=== PATIENT | female | born 1990 | race Caucasian/White ===

== ENCOUNTER 2016-09-09 22:40 | Emergency (ER) | payer OTHER ==
[~2016-09-09] VITALS: Ht 175.2 cm; Wt 90.7 kg
[~2016-09-09 22:40] MED LIST: AMOXICILLIN500 MG PO; ATARAX25 MG PO; BACTRIM DS 8001 TAB PO; BIRTH CONTROL1 EAC1 PO; CIPRO250 MG PO; CIPROFLOXACIN500 MG PO; KEFLEX500 MG PO; LEVOFLOXACIN500 MG PO; LIDEX0.05% T; MACROBID100 M1 PO; MOTRIN600 MG PO; NAPROSYN500 MG PO; NKHM; NORCO 325 MG-51 TAB PO; PARAFON FORTE500 MG PO; PERCOCET 325 MG1 TA2 PO; PERCOCET 325 MG1 TA5 PO; PREDNICOT20 MG PO; PRENATAL1 TA1 PO; PRENATAL1 TA2 PO; PYRIDIUM200 M1 PO; SEPTRA DS 800 M1 TAB PO; ULTRAM50 MG PO; ZITHROMAX250 MG PO; ZOFRAN4 MG PO
[2016-09-09 23:09] LABS: BASO % 0.5 % (0.0-1.0); EOS # 0.2 10*3/uL (0.0-0.4); EOS % 3.7 % (1.0-4.0); HEMATOCRIT 37.9 % (37.0-47.0); HEMOGLOBIN 12.9 g/dl (12.0-16.0); LYMPH # 1.2 10*3/uL (1.3-4.4); LYMPH % 20.2 % (27.0-41.0); MEAN CELL VOLUME 87.3 fl (81.0-99.0); MEAN CORPUSCULAR HGB 29.7 pg (27.0-31.0); MEAN PLATELET VOLUME 9.8 fl (9.6-12.3); MONO # 0.6 10*3/uL (0.1-1.0); NEUT # 3.7 10*3/uL (2.3-7.9); NEUT % 65.2 % (47.0-73.0); PLATELET COUNT AUTOMATED 230 10*3/uL (130-400); RED BLOOD COUNT 4.34 10*6/uL (4.10-5.10); RED CELL DISTRI WIDTH 12.9 % (0-14.5); WHITE BLOOD COUNT 5.7 10*3/uL (4.8-10.8)
[2016-09-09 23:25] LABS: ALBUMIN 3.9 gm/dl (3.1-4.5); ALKALINE PHOSPHATASE 90 U/L (45-117); BILIRUBIN, TOTAL 0.4 mg/dl (0.2-1.0); BUN 10 mg/dl (7-24); CARBON DIOXIDE 28 mmol/L (21-32); CHLORIDE 105 mmol/L (98-107); EST GLOM FILT AFRICAN AMERICAN > 60 ml/min; GLUCOSE 89 mg/dL (65-99); POTASSIUM 3.7 mmol/L (3.5-5.1); SGOT/AST 23 IU/L (3-35); SGPT/ALT 18 U/L (12-78); SODIUM 143 mmol/L (136-145); TOTAL PROTEIN 7.6 gm/dL (6.4-8.2)
[2016-09-09 23:26] LABS: TROPONIN I < 0.015 ng/ml (<0.045)
[2016-09-09 23:50] LABS: PROTHROMBIN TIME 10.6 SECONDS (9.0-12.4)
[2016-09-10] MEDS ORDERED: CYCLOBENZAPRINE10 MG PO (01:34)
[2016-09-10] MEDS ORDERED: IBUPROFEN600 MG PO (01:34)
== END 2016-09-10 01:41 | disposition home or self-care (01) ==
LOC: ED 22:40
PROVIDERS: Family Medicine
DX: S29.012A Strain of muscle and tendon of back wall of thorax, initial encounter (principal); F17.200 Nicotine dependence, unspecified, uncomplicated; X58.XXXA Exposure to other specified factors, initial encounter; Y93.9 Activity, unspecified; Y92.9 Unspecified place or not applicable; Y99.9 Unspecified external cause status

== ENCOUNTER 2016-10-16 18:57 | Emergency (ER) | payer OTHER ==
[~2016-10-16] VITALS: Ht 175.2 cm
[~2016-10-16 18:57] MED LIST changes: +CYCLOBENZAPRINE10 MG PO; +IBUPROFEN600 MG PO
== END 2016-10-16 19:30 | disposition home or self-care (01) ==
LOC: ED 18:57
DX: S61.216A Laceration without foreign body of right little finger without damage to nail, initial encounter (principal); R03.0 Elevated blood-pressure reading, without diagnosis of hypertension; Z29.12 Encounter for prophylactic antivenin; W25.XXXA Contact with sharp glass, initial encounter; Y93.G1 Activity, food preparation and clean up; Y92.89 Other specified places as the place of occurrence of the external cause; Y99.8 Other external cause status

== ENCOUNTER 2017-06-28 14:07 | Emergency (ER) | payer OTHER ==
[~2017-06-28] VITALS: Ht 175.2 cm; Wt 95.3 kg
[2017-06-28] MEDS ORDERED: ZYRTEC10 MG PO (16:07)
[2017-06-28] MEDS ORDERED: AMOXICILLIN500 M2 PO (16:07)
== END 2017-06-28 16:10 | disposition home or self-care (01) ==
LOC: ED 14:07
DX: J01.90 Acute sinusitis, unspecified (principal); F17.200 Nicotine dependence, unspecified, uncomplicated; Z98.51 Tubal ligation status; Z98.890 Other specified postprocedural states; Z79.899 Other long term (current) drug therapy

== ENCOUNTER 2017-08-02 14:02 | Emergency (ER) | payer OTHER ==
[~2017-08-02] VITALS: Ht 177.8 cm; Wt 90.7 kg
[~2017-08-02 14:02] MED LIST changes: +AMOXICILLIN500 M2 PO; +ZYRTEC10 MG PO
[2017-08-02 14:37] LABS: BILIRUBIN NEGATIVE (NEGATIVE); BLOOD NEGATIVE (NEGATIVE); CLARITY SL CLOUDY (CLEAR); COLOR YELLOW (YELLOW); GLUCOSE NEGATIVE (NEGATIVE); KETONE NEGATIVE (NEGATIVE); LEUKO ESTERASE NEGATIVE (NEGATIVE); NITRITE NEGATIVE (NEGATIVE); SPECIFIC GRAVITY 1.025 (1.005-1.030)
[2017-08-02 14:47] LABS: BACTERIA TRACE; EPITHELIAL CELLS 21-30; MUCOUS 3+
[2017-08-02] MEDS ORDERED: ZOFRAN ODT4 MG SL (15:08)
== END 2017-08-02 15:45 | disposition home or self-care (01) ==
LOC: ED 14:02
PROVIDERS: Physician Assistant
DX: N91.2 Amenorrhea, unspecified (principal); R11.2 Nausea with vomiting, unspecified; R51 Headache; F17.200 Nicotine dependence, unspecified, uncomplicated; Z98.51 Tubal ligation status

== ENCOUNTER → 2018-05-01 | Day surgery (SDC) | payer OTHER ==
[2018-04-24 11:41] VITALS: BP 128/71
[~2018-05-01] VITALS: Ht 175.2 cm; Wt 93.0 kg
[~2018-05-01] MED LIST changes: +LOESTRIN FE 1-1 EACH PO; +Motrin,Rufen800 MG PO; +PREDNISONE20 M1 PO; +PROAIR HFA8.5 GM INH; +ZOFRAN ODT4 MG SL
[2018-05-01 09:16] VITALS: BP 83/53
[2018-05-01 09:31] VITALS: BP 103/48
[2018-05-01 09:46] VITALS: BP 118/71
[2018-05-01 10:01] VITALS: BP 110/72
[2018-05-01 10:16] VITALS: BP 109/64
[2018-05-01 10:32] VITALS: BP 106/72
== END | disposition home or self-care (01) ==
LOC: SDC 04-24 11:00
DX: N87.1 Moderate cervical dysplasia (principal); F17.210 Nicotine dependence, cigarettes, uncomplicated; Z98.51 Tubal ligation status; Z87.440 Personal history of urinary (tract) infections; Z98.890 Other specified postprocedural states

== ENCOUNTER 2018-07-07 03:34 | Emergency (ER) | payer OTHER ==
[~2018-07-07] VITALS: Wt 88.5 kg
[2018-07-07] MEDS ORDERED: CYCLOBENZAPRINE10 MG PO (04:00)
[2018-07-07] MEDS ORDERED: IBU800 MG PO (04:00)
[2018-07-07 04:08] LABS: BILIRUBIN NEGATIVE (NEGATIVE); BLOOD 3+ (NEGATIVE); CLARITY SL CLOUDY (CLEAR); COLOR YELLOW (YELLOW); GLUCOSE NEGATIVE (NEGATIVE); KETONE NEGATIVE (NEGATIVE); LEUKO ESTERASE NEGATIVE (NEGATIVE); NITRITE NEGATIVE (NEGATIVE); PH 5.5 (5.0-9.0); SPECIFIC GRAVITY 1.025 (1.005-1.030); UROBILINOGEN 0.2 E.U./dl (0.2-1.0)
[2018-07-07 04:22] LABS: EPITHELIAL CELLS 15-20; RBC 41-50 rbc/hpf (0-2)
[2018-09-24] MEDS ORDERED: Motrin,Rufen800 MG PO (18:33)
== END 2018-07-07 04:37 | disposition home or self-care (01) ==
LOC: ED 03:34
PROVIDERS: Student in an Organized Health Care Education/Training Program
DX: M54.6 Pain in thoracic spine (principal); Z98.890 Other specified postprocedural states; Z98.51 Tubal ligation status; Z79.899 Other long term (current) drug therapy

== ENCOUNTER → 2018-09-22 | Outpatient (CLI) | payer OTHER ==
[~2018-09-22] MED LIST changes: +IBU800 MG PO
== END | disposition home or self-care (01) ==
LOC: US 12:57
DX: N83.292 Other ovarian cyst, left side (principal)

== ENCOUNTER 2019-11-23 18:28 | Emergency (ER) | payer OTHER ==
[~2019-11-23] VITALS: Ht 175.2 cm; Wt 81.6 kg
[2019-11-23 19:30] LABS: BACTERIA 1+; BILIRUBIN 1+ (NEGATIVE); BLOOD NEGATIVE (NEGATIVE); CLARITY SL CLOUDY (CLEAR); COLOR YELLOW (YELLOW); EPITHELIAL CELLS 31-40; GLUCOSE NEGATIVE (NEGATIVE); KETONE NEGATIVE (NEGATIVE); LEUKO ESTERASE TRACE (NEGATIVE); MUCOUS 1+; NITRITE NEGATIVE (NEGATIVE); UROBILINOGEN 0.2 E.U./dl (0.2-1.0)
[2019-11-23 19:31] LABS: YEAST TRACE
== END 2019-11-23 19:39 | disposition left against medical advice (07) ==
LOC: ED 18:28
PROVIDERS: Physician Assistant
DX: R10.9 Unspecified abdominal pain (principal); F17.200 Nicotine dependence, unspecified, uncomplicated; Z79.899 Other long term (current) drug therapy

== ENCOUNTER → 2020-04-12 | Outpatient (CLI) | payer OTHER | END | disposition home or self-care (01) | LOC: COVID19 14:32 | PROVIDERS: ATTEND Nurse Practitioner | DX: Z20.828 Contact with and (suspected) exposure to other viral communicable diseases (principal) ==

== ENCOUNTER 2020-05-23 13:53 | Emergency (ER) | payer OTHER ==
[~2020-05-23] VITALS: Ht 175.2 cm; Wt 81.6 kg
== END 2020-05-23 19:33 | disposition home or self-care (01) ==
LOC: ED 13:53
DX: S96.912A Strain of unspecified muscle and tendon at ankle and foot level, left foot, initial encounter (principal); Z79.899 Other long term (current) drug therapy; X58.XXXA Exposure to other specified factors, initial encounter; Y93.89 Activity, other specified; Y92.89 Other specified places as the place of occurrence of the external cause; Y99.8 Other external cause status

== ENCOUNTER 2020-08-14 23:47 | Emergency (ER) | payer OTHER ==
[~2020-08-14] VITALS: Ht 172.7 cm; Wt 81.6 kg
[2020-08-15 00:42] LABS: BASO # 0.1 10*3/uL (0.0-0.1); BASO % 0.8 % (0.0-1.0); EOS # 0.2 10*3/uL (0.0-0.4); EOS % 1.6 % (1.0-4.0); HEMATOCRIT 37.3 % (37.0-47.0); LYMPH # 1.5 10*3/uL (1.3-4.4); MEAN CELL VOLUME 90.8 fl (81.0-99.0); MEAN CORPUSCULAR HGB 29.9 pg (27.0-31.0); MEAN PLATELET VOLUME 9.8 fl (9.6-12.3); MONO # 0.8 10*3/uL (0.1-1.0); MONO % 7.3 % (3.0-9.0); NEUT # 7.7 10*3/uL (2.3-7.9); NEUT % 74.8 % (47.0-73.0); PLATELET COUNT AUTOMATED 271 10*3/uL (130-400); RED BLOOD COUNT 4.11 10*6/uL (4.10-5.10); RED CELL DISTRI WIDTH 12.5 % (0-14.5); WHITE BLOOD COUNT 10.3 10*3/uL (4.8-10.8)
[2020-08-15 01:00] LABS: ALBUMIN 3.8 gm/dl (3.1-4.5); ALKALINE PHOSPHATASE 75 U/L (45-117); BUN 11 mg/dl (7-24); CHLORIDE 109 mmol/L (98-107); POTASSIUM 3.3 mmol/L (3.5-5.1); SGOT/AST 8 IU/L (3-35); SGPT/ALT 13 U/L (12-78); SODIUM 141 mmol/L (136-145); TOTAL PROTEIN 7.2 gm/dL (6.4-8.2)
[2020-08-15 01:03] LABS: TROPONIN I < 0.015 ng/ml (<0.045)
[2020-08-15 01:30] LABS: URINE AMPHETAMINES < 1000 (1000ng/ml); URINE BARBITURATES < 200 (200ng/ml); URINE BENZODIAZEPINES < 200 (200ng/ml); URINE CANNABINOIDS (THC) > 50 (50ng/ml); URINE COCAINE < 300 (300ng/ml); URINE METHADONE < 300 (300ng/ml); URINE OPIATES < 300 (300ng/ml)
[2020-08-15 01:31] LABS: URINE PHENCYCLIDINE < 25 (25ng/ml)
== END 2020-08-15 03:03 | disposition home or self-care (01) ==
LOC: ED 23:47
PROVIDERS: Emergency Medicine
DX: F41.9 Anxiety disorder, unspecified (principal); Z79.899 Other long term (current) drug therapy; Z98.890 Other specified postprocedural states; Z98.51 Tubal ligation status

== ENCOUNTER 2020-08-19 08:57 | Emergency (ER) | payer OTHER ==
[~2020-08-19] VITALS: Ht 175.2 cm; Wt 82.6 kg
[2020-08-19 09:57] LABS: BASO # 0.1 10*3/uL (0.0-0.1); BASO % 1.4 % (0.0-1.0); EOS # 0.1 10*3/uL (0.0-0.4); EOS % 2.4 % (1.0-4.0); HEMATOCRIT 39.2 % (37.0-47.0); LYMPH # 1.3 10*3/uL (1.3-4.4); LYMPH % 21.7 % (27.0-41.0); MEAN CELL VOLUME 91.8 fl (81.0-99.0); MEAN CORPUSCULAR HGB 30.2 pg (27.0-31.0); MEAN CORPUSCULAR HGB CONC 32.9 g/dl (33.0-37.0); MONO # 0.4 10*3/uL (0.1-1.0); MONO % 6.8 % (3.0-9.0); NEUT % 67.4 % (47.0-73.0); PLATELET COUNT AUTOMATED 278 10*3/uL (130-400); RED BLOOD COUNT 4.27 10*6/uL (4.10-5.10); RED CELL DISTRI WIDTH 12.4 % (0-14.5); WHITE BLOOD COUNT 5.9 10*3/uL (4.8-10.8)
[2020-08-19 10:13] LABS: ALBUMIN 3.8 gm/dl (3.1-4.5); ALKALINE PHOSPHATASE 72 U/L (45-117); BUN 12 mg/dl (7-24); CHLORIDE 109 mmol/L (98-107); CREATININE 0.69 mg/dL (0.55-1.02); LIPASE 155 U/L (73-393); POTASSIUM 3.8 mmol/L (3.5-5.1); SGOT/AST 7 IU/L (3-35); SGPT/ALT 14 U/L (12-78); SODIUM 138 mmol/L (136-145); TOTAL PROTEIN 7.3 gm/dL (6.4-8.2)
[2020-08-19 10:17] LABS: BETA-HCG, QUANT < 1.0 mIU/mL (1-3)
[2020-08-19 11:26] LABS: BILIRUBIN Negative (Negative); BLOOD Negative (Negative); CLARITY Clear (Clear); COLOR Yellow (Yellow); GLUCOSE Negative (Negative); KETONE Negative (Negative); LEUKO ESTERASE Negative (Negative); NITRITE Negative (Negative); SPECIFIC GRAVITY 1.015 (1.001-1.030); UROBILINOGEN 0.2 E.U./dl (0.0-1.0)
[2020-08-19 11:40] LABS: MUCOUS TRACE; RBC 0-2 rbc/hpf (0-2)
[2020-08-19] MEDS ORDERED: PHENERGAN25 M3 PO (13:28)
== END 2020-08-19 14:00 | disposition home or self-care (01) ==
LOC: ED 08:57
PROVIDERS: Emergency Medicine
DX: R11.2 Nausea with vomiting, unspecified (principal); Z79.899 Other long term (current) drug therapy

== ENCOUNTER → 2020-10-23 | Outpatient (CLI) | payer OTHER ==
[~2020-10-23] MED LIST changes: +PHENERGAN25 M3 PO
== END | disposition home or self-care (01) ==
LOC: US 16:57
PROVIDERS: ATTEND Nurse Practitioner Women's Health
DX: R93.89 Abnormal findings on diagnostic imaging of other specified body structures (principal); R10.2 Pelvic and perineal pain

== ENCOUNTER → 2020-11-19 | Outpatient (CLI) | payer OTHER | END | disposition home or self-care (01) | LOC: US 11:30 | PROVIDERS: ATTEND Nurse Practitioner Women's Health | DX: N93.9 Abnormal uterine and vaginal bleeding, unspecified (principal); R35.0 Frequency of micturition ==

== ENCOUNTER 2020-12-14 20:52 | Emergency (ER) | payer OTHER ==
[~2020-12-14] VITALS: Wt 81.6 kg
== END 2020-12-14 22:00 | disposition home or self-care (01) ==
LOC: ED 20:52
DX: S01.01XA Laceration without foreign body of scalp, initial encounter (principal); Z79.899 Other long term (current) drug therapy; Z98.890 Other specified postprocedural states; Z98.51 Tubal ligation status; W20.8XXA Other cause of strike by thrown, projected or falling object, initial encounter; Y93.H2 Activity, gardening and landscaping; Y92.89 Other specified places as the place of occurrence of the external cause; Y99.8 Other external cause status

== ENCOUNTER → 2021-03-26 | Outpatient (CLI) | payer OTHER | END | disposition home or self-care (01) | LOC: COVID19 16:27 | PROVIDERS: ATTEND Student in an Organized Health Care Education/Training Program | DX: Z11.52 Encounter for screening for COVID-19 (principal) ==

== ENCOUNTER 2021-06-12 07:42 | Emergency (ER) | payer OTHER ==
[~2021-06-12] VITALS: Ht 175.2 cm; Wt 83.9 kg
[2021-06-12 08:25] LABS: BASO # 0.1 10*3/uL (0.0-0.1); BASO % 0.7 % (0.0-1.0); EOS # 0.1 10*3/uL (0.0-0.4); EOS % 1.2 % (1.0-4.0); HEMATOCRIT 33.8 % (37.0-47.0); LYMPH # 1.1 10*3/uL (1.3-4.4); LYMPH % 16.8 % (27.0-41.0); MEAN CELL VOLUME 83.9 fl (81.0-99.0); MEAN CORPUSCULAR HGB 26.3 pg (27.0-31.0); MEAN CORPUSCULAR HGB CONC 31.4 g/dl (33.0-37.0); MEAN PLATELET VOLUME 10.3 fl (9.6-12.3); MONO # 0.4 10*3/uL (0.1-1.0); NEUT # 5.1 10*3/uL (2.3-7.9); PLATELET COUNT AUTOMATED 316 10*3/uL (130-400); RED BLOOD COUNT 4.03 10*6/uL (4.10-5.10); RED CELL DISTRI WIDTH 12.9 % (0-14.5); WHITE BLOOD COUNT 6.8 10*3/uL (4.8-10.8)
[2021-06-12 08:41] LABS: ALBUMIN 3.8 gm/dl (3.1-4.5); ALKALINE PHOSPHATASE 74 U/L (45-117); BUN 11 mg/dl (7-24); CHLORIDE 113 mmol/L (98-107); CREATININE 0.78 mg/dL (0.55-1.02); POTASSIUM 3.7 mmol/L (3.5-5.1); SGOT/AST 13 IU/L (3-35); SGPT/ALT 17 U/L (12-78); SODIUM 143 mmol/L (136-145); TOTAL PROTEIN 7.4 gm/dL (6.4-8.2)
[2021-06-12 08:45] LABS: BETA-HCG, QUANT < 1.0 mIU/mL (1-3)
[2021-06-12] MEDS ORDERED: ZOFRAN4 MG PO (10:14)
[2021-06-12 10:21] LABS: BILIRUBIN Negative (Negative); BLOOD Negative (Negative); CLARITY Cloudy (Clear); COLOR Dark Yellow (Yellow); GLUCOSE Negative (Negative); KETONE Trace (Negative); LEUKO ESTERASE Negative (Negative); NITRITE Negative (Negative); SPECIFIC GRAVITY 1.025 (1.001-1.030)
[2021-06-12 10:34] LABS: BACTERIA 3+; MUCOUS 3+
== END 2021-06-12 10:50 | disposition home or self-care (01) ==
LOC: ED 07:42
PROVIDERS: Student in an Organized Health Care Education/Training Program
DX: K52.9 Noninfective gastroenteritis and colitis, unspecified (principal); Z20.822 Contact with and (suspected) exposure to COVID-19; Z98.890 Other specified postprocedural states; Z98.51 Tubal ligation status

== ENCOUNTER → 2021-07-23 | Outpatient (CLI) | payer OTHER | END | disposition home or self-care (01) | LOC: RAD 15:54 | PROVIDERS: ATTEND Nurse Practitioner Family | DX: R07.89 Other chest pain (principal); F17.200 Nicotine dependence, unspecified, uncomplicated; R53.83 Other fatigue ==

== ENCOUNTER 2021-09-05 21:18 | Emergency (ER) | payer SELFPAY ==
[~2021-09-05] VITALS: Ht 175.2 cm; Wt 83.9 kg
[2021-09-05] MEDS ORDERED: SEPTDS PO (22:07)
[2021-09-05] MEDS ORDERED: CEPHALEXIN500 M1 PO (22:07)
== END 2021-09-05 22:10 | disposition home or self-care (01) ==
LOC: ED 21:18
DX: L02.426 Furuncle of left lower limb (principal); Z98.51 Tubal ligation status; Z98.890 Other specified postprocedural states

== ENCOUNTER 2021-11-24 21:38 | Emergency (ER) | payer SELFPAY ==
[~2021-11-24 21:38] MED LIST changes: +CEPHALEXIN500 M1 PO; +SEPTDS PO
== END 2021-11-24 22:50 | disposition home or self-care (01) ==
LOC: ED 21:38
DX: F41.9 Anxiety disorder, unspecified (principal); Z98.890 Other specified postprocedural states; Z98.51 Tubal ligation status

== ENCOUNTER 2022-05-15 20:06 | Emergency (ER) | payer SELFPAY ==
[~2022-05-15] VITALS: Ht 175.2 cm; Wt 80.7 kg
[2022-05-15] MEDS ORDERED: REGLAN10 M1 PO (22:16)
== END 2022-05-15 22:25 | disposition home or self-care (01) ==
LOC: ED 20:06
DX: G43.909 Migraine, unspecified, not intractable, without status migrainosus (principal); Z98.51 Tubal ligation status

== ENCOUNTER 2022-06-30 19:58 | Emergency (ER) | payer OTHER ==
[~2022-06-30] VITALS: Ht 167.6 cm; Wt 72.6 kg
[~2022-06-30 19:58] MED LIST changes: +REGLAN10 M1 PO
[2022-06-30 20:26] LABS: BILIRUBIN Negative (Negative); BLOOD Negative (Negative); CLARITY Clear (Clear); COLOR Orange (Yellow); GLUCOSE Negative (Negative); KETONE Negative (Negative); LEUKO ESTERASE 1+ (Negative); NITRITE Positive (Negative); PH 5.5 (4.5-8.0); SPECIFIC GRAVITY <= 1.005 (1.001-1.030)
[2022-06-30 20:39] LABS: BACTERIA 2+; WBC 31-40 wbc/hpf (0-5)
[2022-06-30] MEDS ORDERED: CEPHALEXIN500 M1 PO (21:24)
== END 2022-06-30 21:35 | disposition home or self-care (01) ==
LOC: ED 19:58
PROVIDERS: Emergency Medicine
DX: N39.0 Urinary tract infection, site not specified (principal); Z98.51 Tubal ligation status; Z98.890 Other specified postprocedural states

== ENCOUNTER 2022-09-03 10:13 | Emergency (ER) | payer OTHER ==
[~2022-09-03] VITALS: Ht 175.2 cm; Wt 81.6 kg
[2022-09-03] MEDS ORDERED: ATIVAN0.5 MG PO (10:34)
[2022-09-03 11:52] LABS: BASO % 0.9 % (0.0-1.0); EOS # 0.1 10*3/uL (0.0-0.4); EOS % 1.9 % (1.0-4.0); LYMPH # 1.2 10*3/uL (1.3-4.4); LYMPH % 27.1 % (27.0-41.0); MEAN CELL VOLUME 90.5 fl (81.0-99.0); MEAN CORPUSCULAR HGB 30.3 pg (27.0-31.0); MEAN CORPUSCULAR HGB CONC 33.5 g/dl (33.0-37.0); MONO # 0.3 10*3/uL (0.1-1.0); MONO % 6.5 % (3.0-9.0); NEUT # 2.7 10*3/uL (2.3-7.9); NEUT % 63.6 % (47.0-73.0); PLATELET COUNT AUTOMATED 259 10*3/uL (130-400); RED BLOOD COUNT 4.09 10*6/uL (4.10-5.10); RED CELL DISTRI WIDTH 12.9 % (0-14.5); WHITE BLOOD COUNT 4.3 10*3/uL (4.8-10.8)
[2022-09-03 12:05] LABS: ACT PARTIAL THROMBO TIME 28.2 SECONDS (20.0-32.1); INTERNATIONAL NORM RATIO 1.1 (2.0-3.5)
[2022-09-03 12:08] LABS: BILIRUBIN Negative (Negative); BLOOD Negative (Negative); CLARITY Clear (Clear); COLOR Yellow (Yellow); GLUCOSE Negative (Negative); KETONE Negative (Negative); LEUKO ESTERASE Negative (Negative); NITRITE Negative (Negative); PH 7.5 (4.5-8.0); UROBILINOGEN 0.2 E.U./dl (0.0-1.0)
[2022-09-03 12:09] LABS: ALKALINE PHOSPHATASE 59 U/L (46-116); BETA-HCG, QUANT < 3.0 mIU/mL (0-10); BUN 8 mg/dl (9-23); CHLORIDE 108 mmol/L (98-107); LIPASE 44 U/L (12-53); POTASSIUM 3.9 mmol/L (3.4-5.1); TOTAL PROTEIN 6.9 gm/dL (6.0-8.0)
[2022-09-03 12:11] LABS: SGPT/ALT < 7 U/L (10-49)
[2022-09-03 12:17] LABS: BACTERIA 1+; MUCOUS 1+; RBC 0-2 rbc/hpf (0-2)
[2022-09-03] MEDS ORDERED: ONDANSETRON4 MG SL (15:13)
[2022-09-03] MEDS ORDERED: PEPCID20 MG PO (15:13)
== END 2022-09-03 15:15 | disposition home or self-care (01) ==
LOC: ED 10:13
PROVIDERS: Emergency Medicine
DX: K52.9 Noninfective gastroenteritis and colitis, unspecified (principal); Z87.442 Personal history of urinary calculi; F41.9 Anxiety disorder, unspecified; Z98.890 Other specified postprocedural states; Z98.51 Tubal ligation status

== ENCOUNTER 2022-11-21 14:44 | Emergency (ER) | payer OTHER ==
[~2022-11-21] VITALS: Ht 175.2 cm; Wt 80.3 kg
[~2022-11-21 14:44] MED LIST changes: +ATIVAN0.5 MG PO; +ONDANSETRON4 MG SL; +PEPCID20 MG PO
[2022-11-21 15:15] LABS: BASO # 0.1 10*3/uL (0.0-0.1); BASO % 1.6 % (0.0-1.0); EOS # 0.1 10*3/uL (0.0-0.4); EOS % 2.2 % (1.0-4.0); HEMATOCRIT 37.2 % (37.0-47.0); LYMPH # 1.2 10*3/uL (1.3-4.4); LYMPH % 27.6 % (27.0-41.0); MEAN CELL VOLUME 88.8 fl (81.0-99.0); MEAN CORPUSCULAR HGB 28.9 pg (27.0-31.0); MEAN CORPUSCULAR HGB CONC 32.5 g/dl (33.0-37.0); MEAN PLATELET VOLUME 9.6 fl (9.6-12.3); MONO # 0.3 10*3/uL (0.1-1.0); MONO % 7.6 % (3.0-9.0); NEUT # 2.7 10*3/uL (2.3-7.9); NEUT % 60.8 % (47.0-73.0); PLATELET COUNT AUTOMATED 276 10*3/uL (130-400); RED BLOOD COUNT 4.19 10*6/uL (4.10-5.10); RED CELL DISTRI WIDTH 12.9 % (0-14.5); WHITE BLOOD COUNT 4.5 10*3/uL (4.8-10.8)
[2022-11-21 15:35] LABS: ALKALINE PHOSPHATASE 66 U/L (46-116); BUN 8 mg/dl (9-23); CHLORIDE 108 mmol/L (98-107); LIPASE 51 U/L (12-53); TOTAL PROTEIN 7.4 gm/dL (6.0-8.0)
[2022-11-21 15:43] LABS: SGPT/ALT < 7 U/L (10-49)
[2022-11-21] MEDS ORDERED: PANTOPRAZOLE SO40 MG PO (16:46)
== END 2022-11-21 16:52 | disposition home or self-care (01) ==
LOC: ED 14:44
PROVIDERS: Nurse Practitioner Family
DX: K21.9 Gastro-esophageal reflux disease without esophagitis (principal); Z87.442 Personal history of urinary calculi; F41.9 Anxiety disorder, unspecified; Z98.890 Other specified postprocedural states; Z98.51 Tubal ligation status

== ENCOUNTER 2022-12-16 13:38 | Emergency (ER) | payer OTHER ==
[~2022-12-16] VITALS: Ht 175.2 cm; Wt 81.6 kg
[~2022-12-16 13:38] MED LIST changes: +PANTOPRAZOLE SO40 MG PO
[2022-12-16 14:44] LABS: BASO # 0.1 10*3/uL (0.0-0.1); BASO % 1.1 % (0.0-1.0); EOS % 0.6 % (1.0-4.0); HEMATOCRIT 35.7 % (37.0-47.0); LYMPH % 16.5 % (27.0-41.0); MEAN CELL VOLUME 87.3 fl (81.0-99.0); MEAN CORPUSCULAR HGB 28.9 pg (27.0-31.0); MEAN CORPUSCULAR HGB CONC 33.1 g/dl (33.0-37.0); MEAN PLATELET VOLUME 10.2 fl (9.6-12.3); MONO # 0.3 10*3/uL (0.1-1.0); MONO % 5.3 % (3.0-9.0); NEUT # 4.7 10*3/uL (2.3-7.9); NEUT % 76.3 % (47.0-73.0); PLATELET COUNT AUTOMATED 257 10*3/uL (130-400); RED BLOOD COUNT 4.09 10*6/uL (4.10-5.10); RED CELL DISTRI WIDTH 12.6 % (0-14.5); WHITE BLOOD COUNT 6.2 10*3/uL (4.8-10.8)
[2022-12-16 15:07] LABS: ALKALINE PHOSPHATASE 64 U/L (46-116); BUN 9 mg/dl (9-23); CHLORIDE 110 mmol/L (98-107); TOTAL PROTEIN 7.1 gm/dL (6.0-8.0)
[2022-12-16 15:08] LABS: BETA-HCG, QUANT < 3.0 mIU/mL (3-10); SGPT/ALT < 7 U/L (10-49)
== END 2022-12-16 16:33 | disposition home or self-care (01) ==
LOC: ED 13:38
PROVIDERS: Physician Assistant Medical
DX: N94.6 Dysmenorrhea, unspecified (principal); R11.2 Nausea with vomiting, unspecified; R19.7 Diarrhea, unspecified; Z87.442 Personal history of urinary calculi; F41.9 Anxiety disorder, unspecified; Z98.51 Tubal ligation status; Z98.890 Other specified postprocedural states; Z87.891 Personal history of nicotine dependence

== ENCOUNTER 2023-06-26 16:01 | Emergency (ER) | payer BC ==
[~2023-06-26] VITALS: Ht 175.2 cm; Wt 87.1 kg
[2023-06-26 16:50] LABS: BASO # 0.1 10*3/uL (0.0-0.1); BASO % 1.3 % (0.0-1.0); EOS # 0.1 10*3/uL (0.0-0.4); EOS % 1.5 % (1.0-4.0); HEMATOCRIT 34.6 % (37.0-47.0); LYMPH # 1.3 10*3/uL (1.3-4.4); LYMPH % 27.2 % (27.0-41.0); MEAN CELL VOLUME 85.9 fl (81.0-99.0); MEAN CORPUSCULAR HGB 26.1 pg (27.0-31.0); MEAN CORPUSCULAR HGB CONC 30.3 g/dl (33.0-37.0); MEAN PLATELET VOLUME 9.5 fl (9.6-12.3); MONO # 0.4 10*3/uL (0.1-1.0); MONO % 8.2 % (3.0-9.0); NEUT # 2.9 10*3/uL (2.3-7.9); NEUT % 61.6 % (47.0-73.0); PLATELET COUNT AUTOMATED 274 10*3/uL (130-400); RED BLOOD COUNT 4.03 10*6/uL (4.10-5.10); RED CELL DISTRI WIDTH 13.5 % (0-14.5); WHITE BLOOD COUNT 4.6 10*3/uL (4.8-10.8)
[2023-06-26 17:08] LABS: ALKALINE PHOSPHATASE 71 U/L (46-116); BUN 8 mg/dl (9-23); CHLORIDE 107 mmol/L (98-107); LIPASE 35 U/L (12-53); POTASSIUM 3.7 mmol/L (3.4-5.1); SGPT/ALT 22 U/L (5-49); TOTAL PROTEIN 6.8 gm/dL (6.0-8.0)
[2023-06-26 17:34] LABS: BILIRUBIN Negative (Negative); BLOOD 3+ (Negative); CLARITY Clear (Clear); COLOR Yellow (Yellow); GLUCOSE Negative (Negative); KETONE Negative (Negative); LEUKO ESTERASE Negative (Negative); NITRITE Negative (Negative)
[2023-06-26 17:44] LABS: PH 8.5 (4.5-8.0); RBC 31-40 rbc/hpf (0-2); WBC 0-2 wbc/hpf (0-5)
[2023-06-26 17:45] LABS: BACTERIA TRACE
[2023-06-26] MEDS ORDERED: ONDANSETRON4 MG SL (17:50)
== END 2023-06-26 18:03 | disposition home or self-care (01) ==
LOC: ED 16:01
PROVIDERS: Nurse Practitioner Family
DX: A08.4 Viral intestinal infection, unspecified (principal); Z20.822 Contact with and (suspected) exposure to COVID-19; R11.2 Nausea with vomiting, unspecified; R19.7 Diarrhea, unspecified; G43.909 Migraine, unspecified, not intractable, without status migrainosus; K21.9 Gastro-esophageal reflux disease without esophagitis; F41.9 Anxiety disorder, unspecified; Z87.442 Personal history of urinary calculi; Z98.890 Other specified postprocedural states; Z98.51 Tubal ligation status; Z79.899 Other long term (current) drug therapy

== ENCOUNTER 2024-03-15 15:17 | Emergency (ER) | payer SELFPAY ==
[~2024-03-15] VITALS: Wt 95.3 kg
[2024-03-15] MEDS ORDERED: AMOX-CLAV 875-1 EACH PO (17:04)
== END 2024-03-15 17:53 | disposition home or self-care (01) ==
LOC: ED 15:17
DX: K11.20 Sialoadenitis, unspecified (principal); H92.02 Otalgia, left ear; Z79.899 Other long term (current) drug therapy; Z98.890 Other specified postprocedural states; Z98.51 Tubal ligation status

== ENCOUNTER → 2024-12-20 | Outpatient (CLI) | payer OTHER ==
[~2024-12-20] MED LIST changes: +AMOX-CLAV 875-1 EACH PO
[2024-12-20 14:16] LABS: BASO # 0.1 10*3/uL (0.0-0.1); BASO % 1.0 % (0.0-1.0); EOS # 0.1 10*3/uL (0.0-0.4); EOS % 1.5 % (1.0-4.0); MEAN CELL VOLUME 79.6 fl (81.0-99.0); MEAN CORPUSCULAR HGB 23.2 pg (27.0-31.0); MEAN PLATELET VOLUME 9.1 fl (9.6-12.3); MONO # 0.6 10*3/uL (0.1-1.0); MONO % 8.0 % (3.0-9.0); NEUT # 4.4 10*3/uL (2.3-7.9); NEUT % 55.0 % (47.0-73.0); NUCLEATED RED BLOOD CELL 0.0 % (0.0-0.0); NUCLEATED RED BLOOD CELL 0.0 10*3/uL (0.0-0.0); PLATELET COUNT AUTOMATED 326 10*3/uL (130-400); RED CELL DISTRI WIDTH 15.0 % (0-14.5)
[2024-12-25 00:06] LABS: TESTOS, FREE 0.6 pg/mL (0.0-4.2)
== END | disposition home or self-care (01) ==
LOC: US 12-10 10:30 → LAB 13:25
PROVIDERS: ATTEND Nurse Practitioner Women's Health
DX: N83.292 Other ovarian cyst, left side (principal); N83.9 Noninflammatory disorder of ovary, fallopian tube and broad ligament, unspecified; N92.0 Excessive and frequent menstruation with regular cycle; L68.0 Hirsutism; R53.83 Other fatigue; N94.6 Dysmenorrhea, unspecified